=== PATIENT | male | born 1955 | race Asian ===

== ENCOUNTER 2018-05-07 15:19 | Inpatient (IN) | payer OTHER ==
[~2018-05-07] VITALS: Ht 167.6 cm; Wt 64.5 kg
[~2018-05-07 15:19] MED LIST: AMOXICILLIN875 MG PO; CARAFATE 1 GM TA1 GM PO; PEPCID20 MG PO
[2018-05-07 15:22] VITALS: BP 109/59
[2018-05-07 15:41] LABS: ABSOLUTE BASOPHILS 0.1 thou/uL (0.0-0.2); ABSOLUTE LYMPHOCYTES 4.4 thou/uL (0.8-5.3); ABSOLUTE MONOCYTES 0.7 thou/uL (0.0-1.2); BASOPHILS 0.7 %; EOSINOPHILS 0.3 %; HEMATOCRIT 44.2 % (42.0-52.0); HEMOGLOBIN 15.3 gm/dL (14.0-18.0); LYMPHOCYTES 31.1 %; MCH 31.1 pg (26.0-34.0); MCHC 34.6 g/dL (28.0-37.0); MCV 89.8 fL (80.0-100.0); MONOCYTES 5.1 %; MPV 7.2 fl. (7.2-11.1); NUCLEATED RBCS 0 /100WBC; PLATELET COUNT* 352 thou/uL (150-400); POLYS 62.8 %; RBC 4.92 mil/uL (4.50-6.00); RDW-CV 14.5 % (10.5-14.5); WBC 14.3 thou/uL (4.0-11.0)
[2018-05-07 15:46] LABS: ANION GAP 17 mmol/L (7-16); BUN 11 mg/dL (7-18); CALCIUM 8.5 mg/dL (8.5-10.1); CHLORIDE 99 mmol/L (98-107); CO2 25 mmol/L (21-32); GLUCOSE 169 mg/dL (70-99); SODIUM 141 mmol/L (136-145)
[2018-05-07 15:48] LABS: APTT 21.7 Seconds (25.0-31.3); INR 0.9; PROTIME 9.5 Seconds (9.20-11.50)
[2018-05-07 15:53] LABS: ALBUMIN 3.8 g/dL (3.4-5.0); ALKALINE PHOSPHATASE 105 U/L (46-116); LIPASE 171 U/L (73-393); SGOT 20 U/L (15-37); SGPT 22 U/L (30-65); TOTAL BILIRUBIN 0.4 mg/dL (<0.1-1.0); TOTAL PROTEIN 7.8 g/dL (6.4-8.2); TROPONIN-I LEVEL <0.06 ng/mL (<0.06)
[2018-05-07 17:59] VITALS: BP 95/51
--- NOTE | 2018-05-07 18:14 | NUR ---
pt to floor from ER, opens yes briefly to verbal commnands, difficulty staying awake, report from ER, pt to ER by ambulance , for Nausea and vomiting m intoxicaton, etoh levels 184, ST on monitor 120s , k levels 3.0 , has not been corrected , will start iv k , there is no family present to give history, placed on 2l per nc
[2018-05-07 18:21] LABS: CALCIUM 8.4 mg/dL (8.5-10.1); PHOSPHORUS* 3.1 mg/dL (2.5-4.9)
[2018-05-07 18:34] VITALS: BP 145/92
[2018-05-07 18:44] LABS: CALCIUM 7.8 mg/dL (8.5-10.1); CREATININE 0.9 mg/dL (0.6-1.3); MAGNESIUM 2.6 mg/dL (1.8-2.4); POTASSIUM 3.5 mmol/L (3.5-5.1)
--- NOTE | 2018-05-07 18:47 | NUR ---
called son Steve Thompson , , son was able to give hx, states daily drinker, states preferred language Gujkr[place], updated on pts condition, son stated may come up to hospital . hx was obtained from son, pt unable to give hx at thsi time, appears sedated, opens eyes brifly to vernal commands
--- NOTE | 2018-05-07 19:05 | NUR ---
PATIENT'S SON HERE TO TAKE PATIENT HOME AGAINST MEDICAL ADVICE. DR CONNOLLY CALLED TO UPDATE AT THIS TIME, ORDERS RECEIVED.
--- NOTE | 2018-05-07 20:09 | NUR ---
ASSUMED CARE OF PT AT 1900. PT IS ALERT AND ORIENTED. FAMILY IS HERE AND WANTS TO TAKE PT HOME. PT STATES ALSO THAT HE WANTS TO LEAVE. FAMILY WILL NOT LET ME START ANY IV FLUIDS OR DO AN ASSESSMENT, THEY STATE THAT THEY JUST WANT TO TAKE HIM HOME. PT DENIES ANY SUICIDAL OR HOMICIDAL IDEATION. PT IS NOT CONSIDERED TO BE AT RISK FOR HURTING HIMSELF. PTS SON IS STATING THAT HE WILL ATTEND TO PTS NEEDS. DISCHARGE INSTRUCTIONS EXPLAINED TO PT AND FAMILY. RISKS SUCH DEHYDRATIION AND EXPLAINED TO FAMILY AND PT. PT LEFT HOSPITAL VIE WHEELCHAIR AT 1999.
[2018-05-07 20:14] LABS: AMP/METHAMP Negative (Negative); BARBITURATES Negative (Negative); BENZODIAZEPINES Negative (Negative); COCAINE Negative (Negative); METHADONE Negative (Negative); OPIATES Negative (Negative); PCP Negative (Negative); THC Negative (Negative)
--- NOTE | 2018-05-08 10:59 | EKG ---
[place] [address] ELECTROCARDIOGRAM REPORT Name: LAUREL THOMPSON Room: [address] [place] .R.#: [id number] Admission: 05/07/18 Attend Phys: Elian Castano, Discharge: 05/07/18 Date of : 53 Report #: [id number] THIS REPORT FOR: //name// [facility] ED Test Date: 2018-05-07 Test Time: 15:33:44 Pat Name: LAUREL THOMPSON Department: Room: [facility] Gender: M [employer] Professional: Fahad BLISS : 1955 Requested By: Reinaldo Thompson Order Number: [id number] MD: Javier Levi Measurements Intervals [place] Rate: 137 P: 57 NV: 143 QRS: 34 QRSD: 73 T: 44 QT: 288 QTc: 435 Interpretive Statements Sinus tachycardia Abnormal R-wave progression, early transition Minimal ST elevation, inferior leads Baseline wander in lead(s) III Compared to ECG 06/11/2016 03:44:22 ST (T wave) deviation now present Electronically Signed On 05-08-2018 10:59:36 CDT by Javier Levi [email or web address] <ELECTRONICALLY SIGNED> By: Min Levi MD, [facility] 05/08/18 1059 1533 [id number] Min Levi MD, [facility] /EPI
== END 2018-05-07 20:00 | disposition left against medical advice (07) | DRG 641 ==
LOC: M.ERS 15:19 → M.TBA-ER 17:19 → M.2W 18:09
PROVIDERS: Family Medicine; ADMIT Family Medicine
DX: E87.6 Hypokalemia (principal); F10.129 Alcohol abuse with intoxication, unspecified; Z53.21 Procedure and treatment not carried out due to patient leaving prior to being seen by health care provider; F17.210 Nicotine dependence, cigarettes, uncomplicated; Z83.6 Family history of other diseases of the respiratory system; Z79.899 Other long term (current) drug therapy